=== PATIENT | female | born 1970 | race Caucasian/White ===

== ENCOUNTER 2018-04-03 06:08 | Day surgery (SDC) | payer OTHER ==
[~2018-04-03] VITALS: Ht 162.6 cm; Wt 86.3 kg
[~2018-04-03 06:08] MED LIST: SODIUM CHLORIDE 0.9% 1,000 ML IV ONE
[2018-04-03] MEDS ORDERED: LIDOCAINE 4% 50 ML SOLUTION TP ONE (06:09)
[2018-04-03] MEDS ORDERED: BENZOCAINE 20% 50 MCG/SPRAY 57 GM TP ONE (06:09)
[2018-04-03] MEDS ORDERED: LIDOCAINE 2% 30 ML JELLY TP ONE (06:09)
[2018-04-03] MEDS ORDERED: ALBUTEROL SULFATE 2.5 MG/0.5 ML NEB SOLUTION NEB ONE (06:09)
[2018-04-03] MEDS ORDERED: EPINEPHrine 1:1,000 [1 MG/ML] AMP IM ONE (06:09)
[2018-04-03] MEDS ORDERED: SODIUM CHLORIDE 0.9% 1,000 ML IV ONE ×2 (06:10→07:00)
[2018-04-03] MEDS ORDERED: MONT10TA21 PO (06:36)
[2018-04-03] MEDS ORDERED: GABA-531 PO (06:36)
[2018-04-03] MEDS ORDERED: ALBU8HFA IH (06:36)
[2018-04-03] MEDS ORDERED: METO-558 PO (06:36)
[2018-04-03] MEDS ORDERED: DULO30CA2 PO (06:36)
[2018-04-03] MEDS ORDERED: BECL10.62 IH (06:36)
[2018-04-03] MEDS ORDERED: [UNRECOGNIZED DRUG - CODE] PO (06:36)
[2018-04-03] MEDS ORDERED: ASPI-1182 PO (06:36)
[2018-04-03] MEDS ORDERED: ACET-784 PO (06:36)
[2018-04-03] MEDS ORDERED: OMEP20 PO (06:36)
[2018-04-03] MEDS ORDERED: MIDAZOLAM HCL 2 MG/2 ML VIAL ONE (07:57)
[2018-04-03] MEDS ORDERED: FentaNYL CITRATE-PF 100 MCG/2 ML VIAL ONE (07:58)
[2018-04-03] MEDS ORDERED: MethylPREDNISolone SOD SUCC 125 MG/2 ML VIAL IVP ONE (08:30)
[2018-04-03] MEDS ORDERED: OXYGEN THERAPY IH SCH (20:00)
== END 2018-04-03 09:45 | disposition home or self-care (01) ==
LOC: SURGERY 06:08
PROVIDERS: ATTEND Internal Medicine Critical Care Medicine
DX: J38.4 Edema of larynx (principal); B37.0 Candidal stomatitis; J98.09 Other diseases of bronchus, not elsewhere classified; I10 Essential (primary) hypertension; J45.998 Other asthma; K21.9 Gastro-esophageal reflux disease without esophagitis; F32.9 Major depressive disorder, single episode, unspecified; M79.7 Fibromyalgia; Z86.69 Personal history of other diseases of the nervous system and sense organs; Z79.82 Long term (current) use of aspirin; Z98.51 Tubal ligation status; Z90.49 Acquired absence of other specified parts of digestive tract; Z79.01 Long term (current) use of anticoagulants; Z79.51 Long term (current) use of inhaled steroids; Z88.0 Allergy status to penicillin; Z88.6 Allergy status to analgesic agent; Z79.891 Long term (current) use of opiate analgesic; Z79.899 Other long term (current) drug therapy; Z98.890 Other specified postprocedural states
CPT/HCPCS: 31623; 31624; 71045; 87070; 87205; 87206; 87220; 88108; 88312; J0171; J2250; J2930; J3010; J7030

== ENCOUNTER 2021-03-18 06:12 | Day surgery (SDC) | payer OTHER ==
[~2021-03-18] VITALS: Ht 165.1 cm; Wt 96.4 kg
[~2021-03-18 06:12] MED LIST changes: +ACET-784 PO; +ALBU8HFA IH; +ASPI-1444 PO; +BECL10.62 IH; +DULO30CA89 PO; +GABA-1181 PO; +METO-558 PO; +MONT-35 PO; +OMEP20 PO; +SODIUM CHLORIDE 0.9% 1,000 ML ONE; +[UNRECOGNIZED DRUG - CODE] PO
[2021-03-18 06:52] LABS: COVID AG,FIA SOURCE NASOPHARYNGEAL
[2021-03-18 07:15] LABS: GLUCOMETER DEV NAME(LOC) SDS.; GLUCOSE,POINT OF CARE 152 MG/DL (70-110)
[2021-03-18] MEDS ORDERED: PREG25 PO (07:22)
[2021-03-18] MEDS ORDERED: DULO60CA98 PO (07:22)
[2021-03-18] MEDS ORDERED: METF-960 PO (07:22)
[2021-03-18] MEDS ORDERED: FentaNYL CITRATE PF 100 MCG/2 ML VIAL ONE (07:32)
[2021-03-18] MEDS ORDERED: MIDAZOLAM HCL 5 MG/ML VIAL ONE (07:32)
[2021-03-18] MEDS ORDERED: MethylPREDNISolone SOD SUCC 125 MG/2 ML VIAL IVP ONE (09:00)
[2021-03-18] MEDS ORDERED: MethylPREDNISolone SOD SUCC 125 MG/2 ML VIAL ONE (09:32)
[2021-03-18] MEDS ORDERED: OXYGEN THERAPY IH SCH (20:00)
== END 2021-03-18 11:00 | disposition home or self-care (01) ==
LOC: SURGERY 06:12
PROVIDERS: ATTEND Internal Medicine Critical Care Medicine
DX: J38.4 Edema of larynx (principal); B37.0 Candidal stomatitis; I10 Essential (primary) hypertension; Z98.890 Other specified postprocedural states; Z88.0 Allergy status to penicillin; Z88.8 Allergy status to other drugs, medicaments and biological substances; J45.909 Unspecified asthma, uncomplicated; Z79.899 Other long term (current) drug therapy
CPT/HCPCS: 31623; 31624; 71045; 82962; 87015; 87070; 87101; 87205; 87206; 87220; 87426; 88108; 88184; 88185; 88312; C9803; J2250; J2930; J3010; J7030

== ENCOUNTER 2022-09-15 06:02 | Day surgery (SDC) | payer OTHER ==
[~2022-09-15] VITALS: Ht 170.2 cm; Wt 85.0 kg
[~2022-09-15 06:02] MED LIST changes: +ALBU18HF12 IH; -ALBU8HFA IH; +DULO-113 PO; -DULO30CA89 PO; -GABA-1181 PO; +METF-1211 PO; +PREG25 PO; -SODIUM CHLORIDE 0.9% 1,000 ML IV ONE; -SODIUM CHLORIDE 0.9% 1,000 ML ONE; +[UNRECOGNIZED DRUG - CODE] PO; -[UNRECOGNIZED DRUG - CODE] PO
[2022-09-15] MEDS ORDERED: BENZOCAINE 20% 50 MCG/SPRAY 57 GM TP ONE (06:03)
[2022-09-15] MEDS ORDERED: LIDOCAINE 2% 11 ML JELLY TP ONE (06:03)
[2022-09-15] MEDS ORDERED: ALBUTEROL SULFATE 2.5 MG/0.5 ML NEB SOLUTION NEB ONE (06:03)
[2022-09-15] MEDS ORDERED: LIDOCAINE 4% 50 ML SOLUTION TP ONE (06:03)
[2022-09-15 07:30] LABS: COVID AG,FIA SOURCE NASAL SWAB
[2022-09-15] MEDS ORDERED: ATOR20TA86 PO (07:35)
[2022-09-15] MEDS ORDERED: DULA3PEN SQ. (07:37)
[2022-09-15] MEDS ORDERED: SODIUM CHLORIDE 0.9% 1,000 ML ONE (08:09)
[2022-09-15] MEDS ORDERED: FentaNYL CITRATE PF 100 MCG/2 ML VIAL ONE (08:13)
[2022-09-15] MEDS ORDERED: MIDAZOLAM HCL 2 MG/2 ML VIAL ONE (08:13)
[2022-09-15] MEDS ORDERED: SODIUM CHLORIDE 0.9% 1,000 ML IV ONE (08:15)
[2022-09-15 09:01] LABS: GLUCOMETER DEV NAME(LOC) SDS.; GLUCOSE,POINT OF CARE 106 MG/DL (70-110)
[2022-09-15] MEDS ORDERED: MethylPREDNISolone SOD SUCC 125 MG/2 ML VIAL ONE (09:13)
[2022-09-15] MEDS ORDERED: MethylPREDNISolone SOD SUCC 125 MG/2 ML VIAL IVP ONE (09:30)
== END 2022-09-15 11:10 | disposition home or self-care (01) ==
LOC: SURGERY 06:02
PROVIDERS: ATTEND Internal Medicine Critical Care Medicine
DX: R05.3 Chronic cough (principal); R91.1 Solitary pulmonary nodule; J98.09 Other diseases of bronchus, not elsewhere classified; J98.8 Other specified respiratory disorders; Z79.899 Other long term (current) drug therapy; Z20.822 Contact with and (suspected) exposure to COVID-19; I10 Essential (primary) hypertension; Z90.49 Acquired absence of other specified parts of digestive tract; E11.9 Type 2 diabetes mellitus without complications; Z98.890 Other specified postprocedural states; Z79.82 Long term (current) use of aspirin
CPT/HCPCS: 31623; 88112; 82962; 87101; 87220; 87070; 31624; 94640; 71045; 87015; 87426; 87206; J3010; J2250; J2930; Q9967; J7030; C9803; J7613; Z7610